=== PATIENT | female | born 1955 | race Caucasian/White ===

== ENCOUNTER 2019-02-05 02:41 | Emergency (ER) | payer BC, MEDICARE ==
[~2019-02-05] VITALS: Ht 160 cm; Wt 70.3 kg
--- NOTE | 2019-02-05 02:51 | NUR ---
MEGAN FROM HOME TO ER BED 3. AAOX4. BREATHING EVEN AND UNLABORED. BROUGHT IN BY ANEESH. C/O FLU LIKE SYMPTOMS STARTING THIS EVENING WHEN SHE WOKE UP. PT REPORTS, THAT SHE HAD THE FLU AND SHINGLE VACCINATION TODAY. PT REPORTS THAT SHE FEELS LIKE HER THROAT IS CLOSING, SATTING @ 98%. PT REPORTS CHILLS, NAUSEA AND UPSET STOMACH. 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 IV LINE PRESENT UPON ARRIVAL ON R HAND 20G. EMS REPORTS GIVING ZOFRAN AND FLUIDS VIA IV. PT PLACED ON MONITOR, FAMILY AT BEDSIDE. AWAITING MD FOR EVAL AND ORDERS
[2019-02-05] MEDS ORDERED: IV NS 0.9% 500 ML BAG IV ONE (03:00)
[2019-02-05] MEDS ORDERED: ACETAMINOPHEN 325 MG TABLET ONE (03:00)
[2019-02-05] MEDS ORDERED: ACETAMINOPHEN 325 MG TABLET PO ONE (03:00)
--- NOTE | 2019-02-05 03:10 | NUR ---
PRT REFUSED CXR. RISK VS BENEFITS EXPLAINED TO THE PT . MD MADE AWARE.
[2019-02-05 03:35] LABS: BASOPHILS # (AUTO) 0.1 /CMM (0.0-0.2); EOSINOPHILS % (AUTO) 0.4 % (0.0-6.0); HEMATOCRIT 35 % (33-45); HEMOGLOBIN 11.8 g/dL (11.5-14.8); LYMPHOCYTES # (AUTO) 0.4 /CMM (0.8-4.8); LYMPHOCYTES % (AUTO) 3.5 % (20.0-44.0); MEAN CORPUSCULAR HGB CONC 34 g/dl (31.0-36.0); MEAN CORPUSCULAR VOLUME 88 fL (82-100); MONOCYTES # (AUTO) 0.6 /CMM (0.1-1.30); NEUTROPHILS # (AUTO) 11.6 /CMM (1.8-8.9); NEUTROPHILS % (AUTO) 90.1 % (43.0-81.0); PLATELET COUNT (AUTO) 232 /CMM (150-450); RED BLOOD CELL COUNT(AUTO) 3.92 MIL/uL (4.0-5.2); WHITE BLOOD COUNT (AUTO) 12.8 K/uL (4.3-11.0)
[2019-02-05 03:40] LABS: CALCIUM, SERUM 7.9 mg/dL (8.5-10.1); CREATININE 1.1 mg/dL (0.6-1.3); POTASSIUM 3.9 mmol/L (3.5-5.1)
[2019-02-05 03:46] LABS: ALBUMIN 3.4 g/dL (3.4-5.0); BILIRUBIN,DIRECT 0.1 mg/dL (0.0-0.2); BILIRUBIN,TOTAL 0.5 mg/dL (0.2-1.0); TOTAL PROTEIN, SERUM 6.1 g/dL (6.4-8.2)
--- NOTE | 2019-02-05 04:28 | NUR ---
Patient discharged to home in stable condition. Written and verbal after care instructions given. Patient verbalizes understanding of instruction.IV removed. Catheter intact and site benign. Pressure and 4x4 applied to site. No bleeding noted.Pt ambulatory with a steady gait
[2019-02-05 04:30] VITALS: BP 116/79
== END 2019-02-05 04:30 | disposition home or self-care (01) ==
LOC: ER 02:42
DX: T78.40XA Allergy, unspecified, initial encounter (principal); J45.909 Unspecified asthma, uncomplicated; E03.9 Hypothyroidism, unspecified; R94.31 Abnormal electrocardiogram [ECG] [EKG]; Z90.89 Acquired absence of other organs; Z98.890 Other specified postprocedural states; Z90.49 Acquired absence of other specified parts of digestive tract; Z88.6 Allergy status to analgesic agent; Z88.8 Allergy status to other drugs, medicaments and biological substances; X58.XXXA Exposure to other specified factors, initial encounter
CPT/HCPCS: 36415; 80048; 80076; 85025; 93005; 99284; J7040